=== PATIENT | male | born 1995 | race African-American/Black ===

== ENCOUNTER 2019-04-10 16:41 | Emergency (ER) | payer OTHER ==
[~2019-04-10] VITALS: Ht 190.5 cm; Wt 97.0 kg
[2019-04-10] MEDS ORDERED: LIDOCAINE HCL/EPINEPHRINE 1%-EPI 1:100,000 20 ML VIAL INFIL ONE (19:45)
[2019-04-10] MEDS ORDERED: ACETAMINOPHEN 325MG TABLET PO ONE (19:45)
[2019-04-10 21:57] VITALS: BP 119/75
== END 2019-04-10 22:05 | disposition home or self-care (01) ==
LOC: ER 16:41
DX: S61.211A Laceration without foreign body of left index finger without damage to nail, initial encounter (principal); S61.213A Laceration without foreign body of left middle finger without damage to nail, initial encounter; S61.011A Laceration without foreign body of right thumb without damage to nail, initial encounter; W26.8XXA Contact with other sharp object(s), not elsewhere classified, initial encounter; Y93.89 Activity, other specified; Y92.89 Other specified places as the place of occurrence of the external cause; R03.0 Elevated blood-pressure reading, without diagnosis of hypertension
CPT/HCPCS: 12001; 73130; 99284; J3490

== ENCOUNTER 2020-10-20 14:28 | Emergency (ER) | payer OTHER ==
[~2020-10-20] VITALS: Ht 190.5 cm; Wt 99.8 kg
[2020-10-20 15:43] VITALS: BP 93/55
[2020-10-20 15:48] LABS: BASOPHILS % 0.9 % (0.0-2.0); EOSINOPHILS % 0.3 % (0.0-5.0); HEMATOCRIT. 42.9 % (42.0-52.0); HEMOGLOBIN. 14.8 g/dL (14.0-18.0); LYMPHOCYTES % 19.6 % (20.0-50.0); MEAN CORPUSCULAR HEMOGLOBIN 30.9 pg (28.0-32.0); MEAN CORPUSCULAR VOLUME 89.5 fL (80.0-94.0); MEAN PLATELET VOLUME 7.1 fl (7.4-10.4); MONOCYTES % 5.2 % (2.0-8.0); PLATELET 346 x1000/uL (130-400); RED BLOOD CELL COUNT 4.79 mill/uL (4.7-6.1); RED CELL DISTRIBUTION WIDTH 12.7 % (11.6-14.6)
[2020-10-20 16:07] LABS: CHLORIDE 107 mEq/L (98-107)
[2020-10-20] MEDS ORDERED: ONDA4TAB11 PO (16:23)
[2020-10-20] MEDS ORDERED: LOPE2CAP MT (16:23)
[2020-10-20] MEDS ORDERED: FAMO20TA8 PO (16:23)
== END 2020-10-20 17:05 | disposition home or self-care (01) ==
LOC: ER 14:54
DX: A08.4 Viral intestinal infection, unspecified (principal); Z20.822 Contact with and (suspected) exposure to COVID-19; R03.0 Elevated blood-pressure reading, without diagnosis of hypertension
CPT/HCPCS: 36415; 80053; 83690; 85025; 93005; 99283; C9803; U0003